=== PATIENT | male | born 1955 | race Caucasian/White ===

== ENCOUNTER 2025-10-03 08:15 | Outpatient (CLI) | payer MEDICARE, SELFPAY ==
--- NOTE | 2025-10-03 09:20 | NEURO_ITS ---
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 ? # Severe right Carpal Tunnel Syndrome. ? # Right Ulnar Neuropathy around the elbow. ? # Abnormal Needle/ EMG exam. Nerve Conduction Studies ?Stim Site NR Peak (ms) P-T Amp (?V) Site1 Site2 Delta-P (ms) Dist (cm) Rodri (m/s) Right Median Anti Sensory (2-3nd Digit) Wrist ? 7.7 7.4 Wrist 2-3nd Digit 7.7 14.0 18 Wrist ? 6.5 10.1 Wrist 2-3nd Digit 7.7 14.0 18 Right Radial Anti Sensory (Base 1st Digit) Wrist ? 2.9 6.5 Wrist Base 1st Digit 2.9 0.0 Right Ulnar Anti Sensory (5th Digit) Wrist ? 5.2 4.4 Wrist 5th Digit 5.2 14.0 27 ?Stim Site NR Onset (ms) O-P Amp (mV) Site1 Site2 Delta-0 (ms) Dist (cm) Rodri (m/s) Right Median Motor (Abd Poll Brev) Wrist ? 7.6 1.3 Elbow Wrist 4.3 39.0 91 Elbow ? 11.9 2.0 Right Ulnar Motor (Abd Dig Minimi) Wrist ? 2.0 4.9 A Elbow Wrist 8.4 32.0 38 A Elbow ? 10.4 3.2 B Elbow Wrist 5.7 21.0 37 B Elbow ? 7.7 1.9 F Wave Studies ?NR F-Lat (ms) L-R F-Lat (ms) Right Median (Mrkrs) (Abd Poll Brev) ? 34.74 Right Ulnar (Mrkrs) (Abd Dig Min) ? 29.71 Electromyography ?Side Muscle Nerve Root Ins Act Fibs Amp Dur Recrt Comment Right 1stDorInt Ulnar C8-T1 Nml Nml Decr >12ms +1 Right Ext Indicis Radial (Post Int) C7-8 Nml Nml Nml Nml Nml Right Ext Digitorum Radial (Post Int) C7-8 Nml Nml Nml Nml Nml Right BrachioRad Radial C5-6 Nml Nml Nml Nml Nml Right PronatorTeres Median C6-7 Nml Nml Nml Nml Nml Right Abd Poll Brev Median C8-T1 Nml Nml Decr >12ms +2 Right ABD Dig Min Ulnar C8-T1 Nml Nml Nml Nml Nml Right FlexPolLong Median (Ant Int) C7-8 Nml Nml Nml Nml Nml Right Abd Poll Long Radial (Post Int) C7-8 Nml Nml Nml Nml Nml
== END 2025-10-03 08:16 | disposition home or self-care (01) ==
LOC: ANHNEURO 08:23
DX: R20.0 Anesthesia of skin (principal); R20.2 Paresthesia of skin; G56.01 Carpal tunnel syndrome, right upper limb; G56.21 Lesion of ulnar nerve, right upper limb
CPT/HCPCS: 95886; 95909